=== PATIENT | male | born 1995 | race Caucasian/White ===

== ENCOUNTER 2023-08-30 13:08 | Outpatient (AMB) | payer OTHER, SELFPAY ==
[2023-08-30 13:14] VITALS: BP 158/92; PULSE 105; O2SAT 98; BMI 31.9
--- NOTE | 2023-08-30 13:14 | MHC.PC.OV ---
Vital Signs 08/30/23 13:14 Height 5 ft 3.5 in Weight 183 lb BMI 31.9 BP 158/92 H Blood Pressure Location Lt brachial Position Sitting Pulse 105 H Pulse Source Pulse Oximeter Pulse Oximetry (%) 98 Oxygen Delivery Method Room Air Intake Visit Reasons: New Patient - Establish Care Allergies No Known Allergies Allergy (Verified 08/30/23 13:14) Medication List - Last Reconciled 08/30/23 by Judy Butler MD No Known Home Meds Tobacco use date assessed: 08/30/23 Dental Screening Dental Screen Date: 08/30/23 Did you have a dental visit in the last 12 months?: Yes Did you have a dental problem in the last 6 months where you did not have access to dental care?: No Was dental information given to patient?: Patient has dentist HPI New Patient - Establish Care HPI Details 28-year-old obese male seen for the 1st time [facility] Surgical History (Updated 08/30/23 @ 13:52 by Judy Butler MD) [place] teeth extracted Family History (Updated 08/30/23 @ 13:37 by Moni Evangelista CMA) Mother No problems noted. Father Diabetes Social History (Updated 08/30/23 @ 13:53 by Judy Butler MD) Housing: Other Housing Other:: Live with mother and grandmother Alcohol intake: current Comment: 1-2 x a week 2 drinks Patient Tobacco Use Status: Former Tobacco user Tobacco use type: Cigarette Years Smoked: last smoke 04/2023- e-Cigarette/Vaping Use: Never Used Second Hand Smoke Exposure: Yes service: No Current occupational status: unemployed Cognitive needs: No Hearing needs: No Vision needs: Yes Questionnaire PHQ-9 Over the last 2 weeks, how often have you been bothered by any of the following problems? 1. Little interest or pleasure in doing things: several days 2. Feeling down, depressed, or hopeless: several days 3. Trouble falling or staying asleep, or sleeping too much: not at all 4. Feeling tired or having little energy: not at all 5. Poor appetite or overeating: not at all 6. Feeling bad about yourself - or that you are a failure or have let yourself or your family down: not at all 7. Trouble concentrating on things, such as reading the newspaper or watching television: not at all 8. Moving or speaking so slowly that other people could have noticed. Or the opposite - being so fidgety or restless that you have been moving around a lot more than usual: not at all 9. Thoughts that you would be better off or of hurting yourself in some way: not at all Total score: 2 Depression Screening Interpretation: Negative Depression Screening Done: Yes Source: Developed by Drs. Genaro Acosta, Nia Beebe, Todd Harkins and colleagues, with an educational justyna from [email or web address]. Thrive Questionnaire Date Thrive assessed: 08/30/23 I am a: Patient What is your living situation today?: I have a steady place to live Within the past 12 months, did the food you bought not last and you didn't have the money to get more?: Never true Within the past 12 months, did you worry whether your food would run out before you got money to buy more?: Never true Do you have trouble paying for medicines?: No Do you have trouble getting transportation to medical appointments?: No Do you have trouble paying your heating and electricity bill?: No Do you have trouble taking care of your child, family member or friend?: No Do you have trouble with day-to-day activities such as bathing, preparing meals, shopping, managing finances, etc.?: No Are you currently unemployed and looking for a job?: No Are you interested in more education?: No Currently or been in a relationship where the following occur: no concerns reported THRIVE Score: 0 AUDIT C Alcohol Use Questionnaire (AUDIT-C) 1. How often do you have a drink containing alcohol?: 2-3 times a week 2. How many drinks containing alcohol do you have on a typical day when you are drinking?: 1 or 2 3. How often do you have six or more drinks on one occasion?: Never Total Score: 3 ELODIA-7 AMB Questionnaire ELODIA-7 Date ELODIA - 7 assessed: 08/30/23 Feeling nervous, anxious, or on edge: 2 = More than half the days Not being able to stop or control worryin = Several days Worrying too much about different things: 1 = Several days Trouble relaxin = Several days Being so restless that it is hard to sit still: 0 = Not at all Becoming easily annoyed or irritable: 1 = Several days Feeling afraid as if something awful might happen: 0 = Not at all Total ELODIA-7 score (0-4 normal; 5-9 mild; 10-14 moderate; 15-21 severe): 6 Source: Developed by Drs. Genaro Acosta, Nia Beebe, Todd Harkins and colleagues, with an educational justyna from [email or web address]. Physical exam (Primary Care) Vital Signs: Last Vital Signs Pulse 105 H 08/30/23 13:14 BP 158/92 H 08/30/23 13:14 Pulse Ox 98 08/30/23 13:14 Oxygen Delivery Method Room Air 08/30/23 13:14 BMI result Body Mass Index 31.9 Tobacco/Smoking Status: Tobacco use Status Tobacco use date assessed 08/30/23 08/30/23 13:40 Patient Tobacco Use Status Former Tobacco user 08/30/23 13:40 Tobacco use type Cigarette 08/30/23 13:40 e-Cigarette/Vaping Use Never Used 08/30/23 13:40 PHQ-9: PHQ-9 Score PHQ-9: Total score 2 08/30/23 13:40 Depression Screening Interpretation: Negative Thrive Assessment: Date of Thrive Assessment Date Thrive assessed 08/30/23 08/30/23 13:15 Currently or been in a relationship where the following occur: no concerns reported Const General: alert; No acute distress Eyes Conjunctivae: conjunctivae normal Resp Auscultation: clear to auscultation bilaterally Cardio Rate: regular rate Rhythm: regular rhythm GI Inspection: Yes normal to inspection Extrem General: Yes normal to inspection and No edema Assessment and Plan Assessment & Plan (1) Obesity (BMI 30.0-34.9): Code(s): E66.9 - Obesity, unspecified Plan: Diet and exercise (2) Blood pressure elevated without history of HTN: Code(s): R03.0 - Elevated blood-pressure reading, without diagnosis of hypertension Plan: advised to monitor BP at home (3) Allergic rhinitis: Code(s): J30.9 - Allergic rhinitis, unspecified (4) Asperger syndrome: Comment: mild therapist private (08/2023) Code(s): F84.5 - Asperger's syndrome Coding Level of Care Code New Pt Level 4 (77930) Diagnoses Obesity (BMI 30.0-34.9) E66.9 Blood pressure elevated without history of HTN R03.0 Allergic rhinitis J30.9 Asperger syndrome F84.5
== END 2023-08-30 14:04 | disposition home or self-care (01) ==
PROVIDERS: PCP Internal Medicine; Visit Provider Internal Medicine
DX: R03.0 Elevated blood-pressure reading, without diagnosis of hypertension (principal); E66.9 Obesity, unspecified; Z68.31 Body mass index [BMI] 31.0-31.9, adult; J30.9 Allergic rhinitis, unspecified; F84.5 Asperger's syndrome
CPT/HCPCS: 99204

== ENCOUNTER 2023-11-03 12:54 | Outpatient (AMB) | payer OTHER, SELFPAY ==
[2023-11-03 12:57] VITALS: BP 154/92; PULSE 103; O2SAT 98; BMI 30.9
--- NOTE | 2023-11-03 12:57 | A.OFFPC_ITS ---
Vital Signs 11/03/23 12:57 Height 5 ft 3.5 in Weight 177 lb BMI 30.9 BP 154/92 H Blood Pressure Location Lt brachial Position Sitting Pulse 103 H Pulse Source Pulse Oximeter Pulse Oximetry (%) 98 Oxygen Delivery Method Room Air Intake Visit Reasons: elevated BP Allergies No Known Allergies Allergy (Verified 11/03/23 12:57) Tobacco use date assessed: 11/03/23 Dental Screening Dental Screen Date: 11/03/23 Did you have a dental visit in the last 12 months?: Yes Did you have a dental problem in the last 6 months where you did not have access to dental care?: No Was dental information given to patient?: Patient has dentist HPI elevated BP HPI Details 28-year-old obese male with a history of Asperger's syndrome seen in August 2023 for physical noted to have an elevated blood pressure and advised to follow-up. Check the blood pressure at home and noted to be elevated here so concerns about being anxious and getting the blood pressure high. Patient was advised to check it at home meanwhile has a follow-up for physical exam in January and advised patient to get the blood work before I see him. As for the weight is happy that he is lost some weight and is going to continue doing this the otherwise no other concerns toe. [facility] Surgical History (Updated 08/30/23 @ 13:52 by Judy Butler MD) [place] teeth extracted Family History (Updated 08/30/23 @ 13:37 by Moni Evangelista CMA) Mother No problems noted. Father Diabetes Social History (Updated 08/30/23 @ 13:53 by Judy Butler MD) Housing: Other Housing Other:: Live with mother and grandmother Alcohol intake: current Comment: 1-2 x a week 2 drinks Patient Tobacco Use Status: Former Tobacco user Tobacco use type: Cigarette Years Smoked: last smoke 04/2023- e-Cigarette/Vaping Use: Never Used Second Hand Smoke Exposure: Yes service: No Current occupational status: unemployed Cognitive needs: No Hearing needs: No Vision needs: Yes Questionnaire PHQ-9 Over the last 2 weeks, how often have you been bothered by any of the following problems? 1. Little interest or pleasure in doing things: several days 2. Feeling down, depressed, or hopeless: several days 3. Trouble falling or staying asleep, or sleeping too much: not at all 4. Feeling tired or having little energy: not at all 5. Poor appetite or overeating: not at all 6. Feeling bad about yourself - or that you are a failure or have let yourself or your family down: not at all 7. Trouble concentrating on things, such as reading the newspaper or watching television: not at all 8. Moving or speaking so slowly that other people could have noticed. Or the opposite - being so fidgety or restless that you have been moving around a lot more than usual: not at all 9. Thoughts that you would be better off or of hurting yourself in some way: not at all Total score: 2 Depression Screening Interpretation: Negative Depression Screening Done: Yes Source: Developed by Drs. Genaro Acosta, Nia Beebe, Todd Harkins and colleagues, with an educational justyna from [employer]. Thrive Questionnaire Date Thrive assessed: 11/03/23 I am a: Patient What is your living situation today?: I have a steady place to live Within the past 12 months, did the food you bought not last and you didn't have the money to get more?: Never true Within the past 12 months, did you worry whether your food would run out before you got money to buy more?: Never true Do you have trouble paying for medicines?: No Do you have trouble getting transportation to medical appointments?: No Do you have trouble paying your heating and electricity bill?: No Do you have trouble taking care of your child, family member or friend?: No Do you have trouble with day-to-day activities such as bathing, preparing meals, shopping, managing finances, etc.?: No Are you currently unemployed and looking for a job?: No Are you interested in more education?: No Currently or been in a relationship where the following occur: no concerns reported THRIVE Score: 0 AUDIT C Alcohol Use Questionnaire (AUDIT-C) 1. How often do you have a drink containing alcohol?: 2-3 times a week 2. How many drinks containing alcohol do you have on a typical day when you are drinking?: 1 or 2 3. How often do you have six or more drinks on one occasion?: Never Total Score: 3 ELODIA-7 AMB Questionnaire ELODIA-7 Date ELODIA - 7 assessed: 11/03/23 Feeling nervous, anxious, or on edge: 2 = More than half the days Not being able to stop or control worryin = Several days Worrying too much about different things: 1 = Several days Trouble relaxin = Several days Being so restless that it is hard to sit still: 0 = Not at all Becoming easily annoyed or irritable: 1 = Several days Feeling afraid as if something awful might happen: 0 = Not at all Total ELODIA-7 score (0-4 normal; 5-9 mild; 10-14 moderate; 15-21 severe): 6 Source: Developed by Drs. Genaro Acosta, Nia Beebe, Todd Harkins and colleagues, with an educational justyna from [employer]. Physical exam (Primary Care) Vital Signs: Last Vital Signs Pulse 103 H 11/03/23 12:57 BP 154/92 H 11/03/23 12:57 Pulse Ox 98 11/03/23 12:57 Oxygen Delivery Method Room Air 11/03/23 12:57 BMI result Body Mass Index 30.9 Tobacco/Smoking Status: Tobacco use Status Tobacco use date assessed 11/03/23 11/03/23 13:02 Patient Tobacco Use Status Former Tobacco user 11/03/23 13:02 Tobacco use type Cigarette 11/03/23 13:02 e-Cigarette/Vaping Use Never Used 11/03/23 13:02 PHQ-9: PHQ-9 Score PHQ-9: Total score 2 11/03/23 13:02 Depression Screening Interpretation: Negative Thrive Assessment: Date of Thrive Assessment Date Thrive assessed 11/03/23 11/03/23 13:02 Currently or been in a relationship where the following occur: no concerns reported Const General: alert; No acute distress Eyes Conjunctivae: conjunctivae normal Resp Auscultation: clear to auscultation bilaterally Cardio Rate: regular rate Rhythm: regular rhythm GI Inspection: Yes normal to inspection Extrem General: Yes normal to inspection and No edema Assessment and Plan Assessment & Plan (1) Obesity (BMI 30.0-34.9): Code(s): E66.9 - Obesity, unspecified Plan: Diet and exercise (2) Blood pressure elevated without history of HTN: Code(s): R03.0 - Elevated blood-pressure reading, without diagnosis of hypertension Plan: concern about the BP elevated and advised to monitor still - has a schedule in January (3) Asperger syndrome: Comment: mild therapist private (08/2023) Code(s): F84.5 - Asperger's syndrome Plan: continue with counselling and therapist Orders: Orders Complete Blood Count Auto Diff Today R03.0 - Elevated blood-pressure reading, without diagnosis of hypertension Comprehensive Met. Panel Today R03.0 - Elevated blood-pressure reading, without diagnosis of hypertension Free T4 (Free Thyroxine) Today R03.0 - Elevated blood-pressure reading, without diagnosis of hypertension Thyroid Stimulating Hormone Today R03.0 - Elevated blood-pressure reading, without diagnosis of hypertension Lipid Panel Today E78.00 - Pure hypercholesterolemia, unspecified, R03.0 - Elevated blood-pressure reading, without diagnosis of hypertension Vitamin B12 and Folate Today R03.0 - Elevated blood-pressure reading, without diagnosis of hypertension Coding Level of Care Code Est Pt Level 4 (74021) Diagnoses Obesity (BMI 30.0-34.9) E66.9 Blood pressure elevated without history of HTN R03.0 Asperger syndrome F84.5
== END 2023-11-03 13:15 | disposition home or self-care (01) ==
PROVIDERS: PCP Internal Medicine; Visit Provider Internal Medicine
DX: R03.0 Elevated blood-pressure reading, without diagnosis of hypertension (principal); E66.9 Obesity, unspecified; Z68.30 Body mass index [BMI] 30.0-30.9, adult; F84.5 Asperger's syndrome
CPT/HCPCS: 99214

== ENCOUNTER 2024-02-01 13:37 | Outpatient (AMB) | payer OTHER, SELFPAY ==
[2024-02-01 14:10] VITALS: BP 122/78; PULSE 95; O2SAT 98; BMI 31.4
--- NOTE | 2024-02-01 14:10 | MHC.PC.OV ---
Vital Signs 02/01/24 14:10 Height 5 ft 3.5 in Weight 180 lb BMI 31.4 BP 122/78 Blood Pressure Location Lt brachial Position Sitting Pulse 95 Pulse Source Pulse Oximeter Pulse Oximetry (%) 98 Oxygen Delivery Method Room Air Intake Visit Reasons: Annual exam Allergies No Known Allergies Allergy (Verified 02/01/24 14:10) Medication List - Last Reconciled 02/01/24 by Judy Butler MD No Known Home Meds Tobacco use date assessed: 11/03/23 Dental Screening Dental Screen Date: 02/01/24 Did you have a dental visit in the last 12 months?: Yes Did you have a dental problem in the last 6 months where you did not have access to dental care?: No Was dental information given to patient?: Patient has dentist HPI Annual exam HPI Details 29-year-old obese male with Asperger's syndrome coming in for follow-up. Last seen in October 2023. Concern about an elevated blood pressure at that time is here for follow-up. ambulatory and complains of hair loss advised to get blood work [facility] Surgical History (Updated 08/30/23 @ 13:52 by Judy Butler MD) [place] teeth extracted Family History (Updated 02/01/24 @ 14:22 by Judy Butler MD) Mother No problems noted. Father Diabetes Maternal Grandfather CVA (cerebral vascular accident) Social History (Updated 08/30/23 @ 13:53 by Judy Butler MD) Housing: Other Housing Other:: Live with mother and grandmother Alcohol intake: current Comment: 1-2 x a week 2 drinks Patient Tobacco Use Status: Former Tobacco user Tobacco use type: Cigarette Years Smoked: last smoke 04/2023- e-Cigarette/Vaping Use: Never Used Second Hand Smoke Exposure: Yes service: No Current occupational status: unemployed Cognitive needs: No Hearing needs: No Vision needs: Yes Questionnaire PHQ-9 Over the last 2 weeks, how often have you been bothered by any of the following problems? 1. Little interest or pleasure in doing things: several days 2. Feeling down, depressed, or hopeless: several days 3. Trouble falling or staying asleep, or sleeping too much: not at all 4. Feeling tired or having little energy: not at all 5. Poor appetite or overeating: not at all 6. Feeling bad about yourself - or that you are a failure or have let yourself or your family down: not at all 7. Trouble concentrating on things, such as reading the newspaper or watching television: not at all 8. Moving or speaking so slowly that other people could have noticed. Or the opposite - being so fidgety or restless that you have been moving around a lot more than usual: not at all 9. Thoughts that you would be better off or of hurting yourself in some way: not at all Total score: 2 Depression Screening Interpretation: Negative Depression Screening Done: Yes Source: Developed by Drs. Genaro Acosta, Nia Beebe, Todd Harkins and colleagues, with an educational justyna from [employer]. Thrive Questionnaire Date Thrive assessed: 02/01/24 I am a: Patient What is your living situation today?: I have a steady place to live Within the past 12 months, did the food you bought not last and you didn't have the money to get more?: Never true Within the past 12 months, did you worry whether your food would run out before you got money to buy more?: Never true Do you have trouble paying for medicines?: No Do you have trouble getting transportation to medical appointments?: No Do you have trouble paying your heating and electricity bill?: No Do you have trouble taking care of your child, family member or friend?: No Do you have trouble with day-to-day activities such as bathing, preparing meals, shopping, managing finances, etc.?: No Are you currently unemployed and looking for a job?: Yes Are you interested in more education?: No Please select the resources that you would like help with: Job search/training Currently or been in a relationship where the following occur: No concerns reported THRIVE Score: 0 AUDIT C Alcohol Use Questionnaire (AUDIT-C) 1. How often do you have a drink containing alcohol?: 2-3 times a week 2. How many drinks containing alcohol do you have on a typical day when you are drinking?: 1 or 2 3. How often do you have six or more drinks on one occasion?: Never Total Score: 3 ELODIA-7 AMB Questionnaire ELODIA-7 Date ELODIA - 7 assessed: 11/03/23 Source: Developed by Drs. Genaro Acosta, Nia Beebe, Todd Harkins and colleagues, with an educational justyna from [employer]. Review of Systems Const Denies poor appetite and Denies weakness Eyes Denies no additional complaints ENT Reports Normal hearing present, Denies dizziness, Denies nasal congestion, Denies tinnitus and Denies sore throat Card Denies chest pain, Denies syncope, Denies rapid heart rate and Denies dyspnea Resp Denies cough and Denies dyspnea GI Denies change in stool character, Reports constipation, Denies diarrhea, Denies nausea and Denies vomiting Denies dysuria and Denies urinary frequency Neuro Reports Normal hearing present, Denies confusion, Denies dizziness, Denies syncope and Denies weakness Psych Denies confusion Physical exam (Primary Care) Vital Signs: Last Vital Signs Pulse 95 02/01/24 14:10 BP 122/78 02/01/24 14:10 Pulse Ox 98 02/01/24 14:10 Oxygen Delivery Method Room Air 02/01/24 14:10 BMI result Body Mass Index 31.4 Tobacco/Smoking Status: Tobacco use Status Tobacco use date assessed 11/03/23 02/01/24 14:15 Patient Tobacco Use Status Former Tobacco user 02/01/24 14:15 Tobacco use type Cigarette 02/01/24 14:15 e-Cigarette/Vaping Use Never Used 02/01/24 14:15 PHQ-9: PHQ-9 Score PHQ-9: Total score 2 02/01/24 14:20 Depression Screening Interpretation: Negative Thrive Assessment: Date of Thrive Assessment Date Thrive assessed 02/01/24 02/01/24 14:15 Currently or been in a relationship where the following occur: No concerns reported Const General: No confusion Orientation/consciousness: No confusion HENMT Head: Yes normocephalic Ears: external ears normal and TM's normal bilaterally Face and sinus: Yes normal facial exam Mouth: moist mucous membranes Throat: Yes tonsils normal Eyes Conjunctivae: conjunctivae normal Pupils: Equal, round and reactive pupils present and Pupil accommodation reflex normal Direct Ophthalmoscopy: normal light reflex Neck Neck: No lymphadenopathy Thyroid: Thyroid normal Chest Chest palpation & inspection: normal inspection of the chest Resp Effort & Inspection: normal respiratory effort and no audible wheezes Auscultation: clear to auscultation bilaterally, no crackles, no wheezes and lung sounds not diminished Cardio Rate: regular rate Rhythm: regular rhythm Peripheral pulses: radial pulses present and dorsalis pedis present GI Palpation (GI): no masses Auscultation: normal bowel sounds and normoactive bowel sounds Rectal Exam - Male: Yes deferred Male General Exam: Yes normal external exam Skin General skin exam: no rashes or lesions noted Rashes: no rashes Neuro General: No confusion Cranial nerves: Yes Equal, round and reactive pupils present and Yes Normal hearing present Cognition (Neuro): normal cognition Gait exam (Neuro): Normal gait present Motor exam (neuro): 5/5 motor strength present throughout Deep tendon reflexes (DTR's): Right brachioradialis reflex intensity grade: 2+, Left brachioradialis reflex intensity grade: 2+, Right patellar reflex intensity grade: 2+ and Left patellar reflex intensity grade: 2+ Extrem General: No edema Immunizations Boostrix Tdap 2.5 Lf unit-8 mcg-5 Lf/0.5 mL intramuscular syringe Performing Provider: Judy Butler MD [facility] Administered by: HOLLIS Santos on 02/01/24 14:58 Dose Route Admin Location Dispensed Lot Number Expiration Date NDC Art Editor 0.5 mL IM Left Deltoid 0.5 mL [id number] 03/03/26 [id number] [employer] VIS Given Date VIS Provided VIS Publication Date 02/01/24 Single Vaccine 21 Eligibility Eligibility Date Funding Source Not [facility] Eligible 02/01/24 Private Assessment and Plan Assessment & Plan (1) Annual physical exam: Code(s): Z00.00 - Encounter for general adult medical examination without abnormal findings Plan: Patient is advised to eat healthy, keep well hydrated, keep active and have adequate sleep. (2) Obesity (BMI 30.0-34.9): Code(s): E66.9 - Obesity, unspecified Plan: Diet and exercise (3) Asperger syndrome: Comment: mild therapist private (08/2023) Code(s): F84.5 - Asperger's syndrome Plan: Continue with therapy Orders: Orders TDaP Immunization Today Z23 - Encounter for immunization Medications: New Boostrix Tdap (diphth,pertus(acell),tetanus) 0.5 mL IM ONCE 0.5 mL 0RF NS Z23 - Encounter for immunization Coding Level of Care Code Est Pt Prev Care 18-39y(43912) Diagnoses Annual physical exam Z00.00 Obesity (BMI 30.0-34.9) E66.9 Asperger syndrome F84.5
== END 2024-02-01 14:44 | disposition home or self-care (01) ==
PROVIDERS: PCP Internal Medicine; Visit Provider Internal Medicine
DX: Z23 Encounter for immunization (principal); Z00.00 Encounter for general adult medical examination without abnormal findings; E66.9 Obesity, unspecified; Z68.31 Body mass index [BMI] 31.0-31.9, adult; F84.5 Asperger's syndrome
CPT/HCPCS: 90471; 90715; 99395

== ENCOUNTER 2025-02-06 15:06 | Outpatient (AMB) | payer OTHER, SELFPAY ==
--- NOTE | 2025-02-06 15:32 | MHC.PC.OV ---
Vital Signs 02/06/25 15:34 Height 5 ft 3.5 in Weight 187 lb BMI 32.6 BP 136/80 Blood Pressure Location Lt brachial Position Sitting Pulse 92 Pulse Source Pulse Oximeter Pulse Oximetry (%) 97 Oxygen Delivery Method Room Air Intake Visit Reasons: PE - see comments Intake Note: Patient here for a physical exam Community Relations Specialist Required: No Accompanied by: Self / Same As Patient Allergies No Known Allergies Allergy (Verified 02/06/25 15:37) Medication List - Last Reconciled 02/06/25 by Judy Butler MD No Known Home Meds Tobacco use date assessed: 02/06/25 Dental Screening Dental Screen Date: 02/06/25 Did you have a dental visit in the last 12 months?: Yes Did you have a dental problem in the last 6 months where you did not have access to dental care?: No Was dental information given to patient?: Patient has dentist [facility] Surgical History [place] teeth extracted Family History Mother No problems noted. Father Diabetes Maternal Grandfather CVA (cerebral vascular accident) Social History Housing: Other Housing Other:: Live with mother and grandmother Alcohol intake: current Comment: 1-2 x a week 2 drinks Patient Tobacco Use Status: Former Tobacco user Tobacco use type: Cigarette Years Smoked: last smoke 04/2023- e-Cigarette/Vaping Use: Never Used Second Hand Smoke Exposure: Yes service: No Current occupational status: employed Current occupational exposures/hazards: No Cognitive needs: No Hearing needs: No Vision needs: Yes Questionnaire PHQ-9 Over the last 2 weeks, how often have you been bothered by any of the following problems? 1. Little interest or pleasure in doing things: not at all 2. Feeling down, depressed, or hopeless: not at all 3. Trouble falling or staying asleep, or sleeping too much: not at all 4. Feeling tired or having little energy: not at all 5. Poor appetite or overeating: not at all 6. Feeling bad about yourself - or that you are a failure or have let yourself or your family down: not at all 7. Trouble concentrating on things, such as reading the newspaper or watching television: not at all 8. Moving or speaking so slowly that other people could have noticed. Or the opposite - being so fidgety or restless that you have been moving around a lot more than usual: not at all 9. Thoughts that you would be better off or of hurting yourself in some way: not at all Total score: 0 Depression Screening Interpretation: Negative Depression Screening Done: Yes Source: Developed by Drs. Genaro Acosta, Nia Beebe, Todd Harkins and colleagues, with an educational justyna from [employer]. Thrive Questionnaire Date Thrive assessed: 01/30/25 I am a: Patient What is your living situation today?: I have a steady place to live Within the past 12 months, did the food you bought not last and you didn't have the money to get more?: Never true Do you have trouble paying for medicines?: No Do you have trouble getting transportation to medical appointments?: No Do you have trouble paying your heating and electricity bill?: No Do you have trouble taking care of your child, family member or friend?: No Do you have trouble with day-to-day activities such as bathing, preparing meals, shopping, managing finances, etc.?: No Are you currently unemployed and looking for a job?: No Are you interested in more education?: I choose not to answer this question THRIVE Score: 0 AUDIT C Alcohol Use Questionnaire (AUDIT-C) 1. How often do you have a drink containing alcohol?: 2-4 times a month 2. How many drinks containing alcohol do you have on a typical day when you are drinking?: 1 or 2 3. How often do you have six or more drinks on one occasion?: Never Total Score: 2 ELODIA-7 AMB Questionnaire ELODIA-7 Date ELODIA - 7 assessed: 02/06/25 Feeling nervous, anxious, or on edge: 0 = Not at all Not being able to stop or control worryin = Not at all Worrying too much about different things: 0 = Not at all Trouble relaxin = Not at all Being so restless that it is hard to sit still: 0 = Not at all Becoming easily annoyed or irritable: 0 = Not at all Feeling afraid as if something awful might happen: 0 = Not at all Total ELODIA-7 score (0-4 normal; 5-9 mild; 10-14 moderate; 15-21 severe): 0 Source: Developed by Drs. Genaro Acosta, Nia Beebe, Todd Harkins and colleagues, with an educational justyna from [employer]. Review of Systems Const Denies poor appetite and Denies weakness Eyes Denies no additional complaints ENT Reports Normal hearing present, Denies dizziness, Denies nasal congestion, Denies tinnitus and Denies sore throat Card Denies chest pain, Denies syncope, Denies rapid heart rate and Denies dyspnea Resp Denies cough and Denies dyspnea GI Denies change in stool character, Reports constipation, Denies diarrhea, Denies nausea and Denies vomiting Denies dysuria and Denies urinary frequency Neuro Reports Normal hearing present, Denies confusion, Denies dizziness, Denies syncope and Denies weakness Psych Denies confusion Physical exam (Primary Care) Vital Signs: Last Vital Signs Pulse 92 02/06/25 15:34 BP 136/80 02/06/25 15:34 Pulse Ox 97 02/06/25 15:34 Oxygen Delivery Method Room Air 02/06/25 15:34 BMI result Body Mass Index 32.6 Tobacco/Smoking Status: Tobacco use Status Tobacco use date assessed 02/06/25 02/06/25 15:37 Patient Tobacco Use Status Former Tobacco user 02/06/25 15:37 Tobacco use type Cigarette 02/06/25 15:37 e-Cigarette/Vaping Use Never Used 02/06/25 15:37 PHQ-9: PHQ-9 Score PHQ-9: Total score 0 02/06/25 15:47 Depression Screening Interpretation: Negative Thrive Assessment: Date of Thrive Assessment Date Thrive assessed 01/30/25 02/06/25 15:37 Const General: alert and awake; No confusion Orientation/consciousness: No confusion HENMT Head: Yes normocephalic Ears: external ears normal and TM's normal bilaterally Face and sinus: Yes normal facial exam Mouth: moist mucous membranes Throat: Yes tonsils normal Eyes Conjunctivae: conjunctivae normal Pupils: Equal, round and reactive pupils present and Pupil accommodation reflex normal Direct Ophthalmoscopy: normal light reflex Neck Neck: No lymphadenopathy Thyroid: Thyroid normal Chest Chest palpation & inspection: normal inspection of the chest Resp Effort & Inspection: normal respiratory effort and no audible wheezes Auscultation: clear to auscultation bilaterally, no crackles, no wheezes and lung sounds not diminished Cardio Rate: regular rate Rhythm: regular rhythm Peripheral pulses: radial pulses present and dorsalis pedis present GI Palpation (GI): no masses Auscultation: normal bowel sounds and normoactive bowel sounds Rectal Exam - Male: Yes deferred Skin General skin exam: no rashes or lesions noted Rashes: no rashes Neuro General: deep tendon reflexes 2+ bilaterally and No confusion Cranial nerves: Yes Equal, round and reactive pupils present, Yes Midline tongue present, Yes Normal hearing present and Yes Ability to bilaterally elevate shoulders present Cognition (Neuro): normal cognition Gait exam (Neuro): Normal gait present Motor exam (neuro): 5/5 motor strength present throughout Deep tendon reflexes (DTR's): Right brachioradialis reflex intensity grade: 2+, Left brachioradialis reflex intensity grade: 2+, Right patellar reflex intensity grade: 2+ and Left patellar reflex intensity grade: 2+ Extrem General: No edema Coding Level of Care Code Est Pt Prev Care 18-39y(32007) Diagnoses Annual physical exam Z00.00 Asperger syndrome F84.5 Obesity (BMI 30.0-34.9) E66.9 Plantar fasciitis, bilateral M72.2 Assessment & Plan Assessment & Plan (1) Annual physical exam: Code(s): Z00.00 - Encounter for general adult medical examination without abnormal findings Category: Medical Plan: Patient is advised to eat healthy, keep well hydrated, keep active and have adequate sleep. (2) Asperger syndrome: Comment: mild therapist private (08/2023) Code(s): F84.5 - Asperger's syndrome Category: Medical Plan: Continue with counseling (3) Obesity (BMI 30.0-34.9): Code(s): E66.9 - Obesity, unspecified Category: Medical Plan: Diet and exercise (4) Plantar fasciitis, bilateral: Code(s): M72.2 - Plantar fascial fibromatosis Category: Medical Plan: information given Plan History of Present Illness The patient is a 30-year-old male presenting for a wellness visit and management of chronic conditions. He has a history of obesity, with a recent weight gain of 7 pounds. The patient also has Asperger's syndrome, which has been managed with ongoing counseling. The patient reports a history of allergic rhinitis, which has been persistent. He experiences symptoms such as nasal congestion and sneezing, particularly during certain seasons. The patient has been diagnosed with plantar fasciitis, primarily affecting the right foot. This condition has been exacerbated by prolonged standing at work, and he has been advised to use cushioning in his shoes and perform stretching exercises. Health Maintenance - Vaccinations: Tetanus shot is up to date, received flu shot last March - Lifestyle: Advised to maintain hydration and avoid excessive fatty foods - Exercise: Encouraged to engage in regular physical activity, avoiding extreme heat Social History - Employment: Works in a factory, involves prolonged standing - Exercise: Occasionally visits the park for physical activity - Nutrition: Consumes Powerade and water during work, advised to increase water intake Review of Systems - General: Reports recent weight gain of 7 pounds - ENT: Reports nasal congestion and sneezing - Musculoskeletal: Reports pain in the right foot due to plantar fasciitis Physical Exam General: Cooperative, healthy appearing, comfortable, no acute distress, well developed, noted 7-pound weight gain, obese Orientation: Patient oriented x3 Limitations: No limitations Head: Normal to inspection Ears: Hearing grossly normal bilaterally Nose: Normal external nose present, allergic rhinitis noted Face and sinus: Normal facial exam Eyes: Appearance normal, both eyes and all related structures, last eye exam 5 years ago Neck: Normal visual inspection and Yes full ROM Respiratory: Normal respiratory effort and able to speak in complete sentences. Clear to auscultation bilaterally Cardiovascular: Regular rate and rhythm. Normal S1 and S2 GI: Normal to inspection. Soft to palpation and nontender Skin: No rashes or lesions noted Neuro: Patient oriented x3 Extremities: Normal to inspection, plantar fasciitis noted, more so on the right foot Results Plan The patient will continue with counseling for Asperger's syndrome to support mental health management. For obesity, the patient is advised to maintain a balanced diet and engage in regular physical activity, avoiding extreme heat to prevent heat exhaustion. Management of plantar fasciitis includes using cushioning in shoes and performing stretching exercises to alleviate symptoms. Preventative care measures include maintaining up-to-date vaccinations, with the tetanus shot current and the flu shot received last March. The patient is encouraged to stay hydrated, particularly during work, and to avoid excessive consumption of fatty foods. Patient was informed and verbally consented to the use of an ambient scribe for clinic note documentation during this visit. Discussion Notes I discussed with the patient the importance of continuing counseling for Asperger's syndrome and maintaining a balanced diet to manage obesity. We reviewed the management of plantar fasciitis, emphasizing the use of cushioning in shoes and stretching exercises. I advised the patient to keep vaccinations up to date and to stay hydrated, especially during work. Patient Instructions - Continue with counseling sessions for Asperger's syndrome. - Follow a balanced diet and engage in regular exercise, avoiding extreme heat. - Use cushioning in shoes and perform stretching exercises for plantar fasciitis. - Keep vaccinations up to date and stay hydrated, especially during work. Orders: Orders Comprehensive Met. Panel Today E66.9 - Obesity, unspecified Complete Blood Count Auto Diff Today E66.9 - Obesity, unspecified Free T4 (Free Thyroxine) Today E66.9 - Obesity, unspecified Thyroid Stimulating Hormone Today E66.9 - Obesity, unspecified Lipid Panel Today E66.9 - Obesity, unspecified, E78.00 - Pure hypercholesterolemia, unspecified Vitamin B12 and Folate Today E66.9 - Obesity, unspecified
[2025-02-06 15:34] VITALS: BP 136/80; PULSE 92; O2SAT 97; BMI 32.6
== END 2025-02-06 16:04 | disposition home or self-care (01) ==
LOC: HO.HMCH 15:07
PROVIDERS: PCP Internal Medicine; Visit Provider Internal Medicine
DX: Z00.00 Encounter for general adult medical examination without abnormal findings (principal); F84.5 Asperger's syndrome; E66.9 Obesity, unspecified; Z68.32 Body mass index [BMI] 32.0-32.9, adult; M72.2 Plantar fascial fibromatosis